=== PATIENT | male | born 1980 | race Caucasian/White ===

== ENCOUNTER 2018-02-14 20:04 | Emergency (ER) | payer OTHER ==
[~2018-02-14] VITALS: Ht 180.3 cm; Wt 108.9 kg
[~2018-02-14 20:04] MED LIST: CIPRO500 MG PO; MECLIZINE HCL25 MG PO; PROTONIX40 MG PO; ZANTAC300 MG PO; ZOFRAN4 MG PO
== END 2018-02-14 21:08 | disposition home or self-care (01) ==
LOC: ER 20:04
DX: K08.89 Other specified disorders of teeth and supporting structures (principal)

== ENCOUNTER 2018-03-04 18:25 | Emergency (ER) | payer OTHER ==
[~2018-03-04] VITALS: Ht 152.4 cm; Wt 110.7 kg
[2018-03-05] MEDS ORDERED: CLINDAMYCIN HC300 MG PO (01:14)
[2018-03-05] MEDS ORDERED: INTESTINEX680 M1 PO (01:14)
[2018-03-06] MEDS ORDERED: TYLENOL EXTRA500 MG PO (09:59)
== END 2018-03-05 01:25 | disposition home or self-care (01) ==
LOC: ER 18:25
DX: R59.0 Localized enlarged lymph nodes (principal)